=== PATIENT | male | born 1930 | race Caucasian/White ===

== ENCOUNTER → 2018-06-12 | Outpatient (CLI) | payer MEDICARE, OTHER ==
[~2018-06-12] MED LIST: CLOP75TA27 PO; LISI-471 PO; METF100010 PO; METO-319 PO; NITR0.4T39 SL; PANT40TA3 PO; SIMV40TA3 PO; SOLI10TA2 PO; TAMS-14 PO
== END | disposition home or self-care (01) ==
LOC: VAS 12:53
PROVIDERS: ATTEND Internal Medicine
DX: I65.29 Occlusion and stenosis of unspecified carotid artery (principal)
CPT/HCPCS: 93880